=== PATIENT | female | born 1965 | race Caucasian/White ===

== ENCOUNTER → 2022-08-17 11:07 | Outpatient (BNVA) | payer MEDICAID, SELFPAY | PROVIDERS: Visit Provider Family Medicine | DX: I10 Essential (primary) hypertension (principal); E66.01 Morbid (severe) obesity due to excess calories; R73.03 Prediabetes; G47.00 Insomnia, unspecified; G47.33 Obstructive sleep apnea (adult) (pediatric); M54.9 Dorsalgia, unspecified; G89.29 Other chronic pain; G43.509 Persistent migraine aura without cerebral infarction, not intractable, without status migrainosus; Z99.89 Dependence on other enabling machines and devices; F32.1 Major depressive disorder, single episode, moderate; F17.200 Nicotine dependence, unspecified, uncomplicated; Z71.6 Tobacco abuse counseling; I87.8 Other specified disorders of veins; E03.9 Hypothyroidism, unspecified | CPT/HCPCS: 80053; 80061; 83036; 84439; 84443; 85025 ==

== ENCOUNTER → 2022-08-31 11:33 | Outpatient (BNVA) | payer MEDICAID, SELFPAY | PROVIDERS: Visit Provider Family Medicine | DX: I10 Essential (primary) hypertension (principal); G47.00 Insomnia, unspecified; G43.509 Persistent migraine aura without cerebral infarction, not intractable, without status migrainosus; E03.9 Hypothyroidism, unspecified; E66.01 Morbid (severe) obesity due to excess calories; M54.9 Dorsalgia, unspecified; G89.29 Other chronic pain; R73.03 Prediabetes; F32.1 Major depressive disorder, single episode, moderate; F17.200 Nicotine dependence, unspecified, uncomplicated; G47.33 Obstructive sleep apnea (adult) (pediatric) | CPT/HCPCS: 80048 ==

== ENCOUNTER → 2022-09-02 12:17 | Outpatient (BNVA) | payer MEDICAID, SELFPAY | PROVIDERS: Visit Provider Anesthesiology Pain Medicine | DX: M54.9 Dorsalgia, unspecified (principal); G89.29 Other chronic pain | CPT/HCPCS: 72110 ==

== ENCOUNTER 2022-11-23 20:00 | Outpatient (CLI) | payer MEDICAID, SELFPAY | END 2022-11-23 20:01 | disposition home or self-care (01) | LOC: SLEEP 11-24 05:57 | PROVIDERS: PCP Family Medicine; Visit Provider Family Medicine | DX: G47.33 Obstructive sleep apnea (adult) (pediatric) (principal) | CPT/HCPCS: 95810 ==

== ENCOUNTER → 2022-11-30 09:06 | Outpatient (BNVA) | payer OTHER, SELFPAY | PROVIDERS: PCP Family Medicine; Visit Provider Psychiatry & Neurology Psychiatry | DX: F32.1 Major depressive disorder, single episode, moderate (principal) | CPT/HCPCS: 80061; 83036 ==

== ENCOUNTER 2022-12-02 09:36 | Outpatient (RCR) | payer MEDICAID, SELFPAY | END 2022-12-22 23:59 | disposition home or self-care (01) | LOC: SPT 09:36 | PROVIDERS: PCP Family Medicine; Visit Provider Anesthesiology Pain Medicine | DX: M54.50 Low back pain, unspecified (principal); G89.29 Other chronic pain | CPT/HCPCS: 97161 ==

== ENCOUNTER 2022-12-13 10:17 | Inpatient (IN) | payer MEDICAID, SELFPAY ==
[2022-12-13 10:21] VITALS: BP 130/76; PULSE 109; RESP 20; TEMP 36.3; O2SAT 96
--- NOTE | 2022-12-13 11:13 | ED.C_ITS ---
HPI - Psych General: Chief Complaint: Psychiatric Symptoms Stated Complaint: mhe Time Seen by Provider: 12/13/22 10:20 History of Present Illness: 57-year-old male with past medical history of borderline diabetes, nicotine use disorder, major depressive disorder, presenting with active suicidality. Patient was staying at the [facility] given he does not have a home of his own and he was kicked out. He pulled on the pony tail of a another resident and was joking around with her. She did not take this as a joke when it came from him but she did take as a joke when it happened with other residents, and he was kicked out of this living situation. Subsequently states that he plans to run into the middle of the road abruptly when he sees a large vehicle coming in order to end his life. States he has never attempted to kill himself in the past. Denies homicidal criss ation. Denies drug ingestion, alcohol ingestion. Has smoked cigarettes recently. Associated symptoms: Reports depression and suicidal ideation; Deny homicidal ideation Review of Systems General: Reports: 10 or more systems reviewed and unremarkable except in HPI and below Const: Denies: fever(s), chills or body aches Eyes: Denies: change in vision or blurry vision ENMT: Denies: throat pain, uvular edema or enlarged tonsils Card: Denies: chest pain or palpitations GI: Denies: abdominal pain, nausea or vomiting : Reports: other (States has a small skin lesion on his right groin area ); Denies: difficulty urinating or dysuria Musc: Denies: neck pain or back pain Skin/Breast: Denies: rash or pruritus Neuro: Denies: headache(s) or numbness in extremities Psych: Reports: depression and suicidal ideation; Denies: homicidal ideation [facility] ED PFSH: Medical History Borderline diabetes Chronic back pain Dependence on CPAP ventilation Depression Does mobilize using cane Essential (primary) hypertension Migraine aura, persistent Morbid obesity BMI 68.7% Obstructive sleep apnea Psychiatric care Renal calculus or stone Tobacco use disorder Surgical History History of nasal surgery Septum deviation History of tonsillectomy and adenoidectomy History of uvulopalatopharyngoplasty Family History Grandfather Hypertension Mother Cancer Hodgkin's Denies family history of Diabetes Dementia Chronic kidney disease (CKD) Lung disease Stroke Social History (Updated 12/01/22 @ 08:15 by Gianna Hartley LPN) Smoking and tobacco status: current every day smoker (0.5ppd) cigarettes [ Other cigarette details: 2 cigs/day] Quit status (tobacco): not considering quitting Second hand smoke exposure: Yes Alcohol intake: never Desire information about alcohol rehabilitation?: No Counseling given: No Desire information about substance/drug rehabilitation?: No Counseling given: No Adopted: No Caregiver/support person: No Lives independently: No (at [facility]) Household members: other Details: currently at [facility] Housing: Other Details: [facility] Marital status: / Number of children: 1 Number of grandchildren: 2 Highest education level completed: Associate Degree: Academic Program Education level details: and part way through Bachelor's degree service: No Current occupational status: unemployed and disabled 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 Current occupational exposures/hazards: No Pets and animals: No Leisure activites: reading and other Leisure activities details: watch movies, play on computer Current gender identity: Male Irene/Evangelical: None Special irene needs: No Agree to transfusion: No Financial difficulty paying for basics: Very Hard Physical Exam Const: COMMON NORMALS: no acute distress and average body habitus HENMT: COMMON NORMALS: normocephalic, atraumatic and Normal external nose present HEAD & SCALP: normocephalic and atraumatic FACE & SINUS: normal facial exam and sinuses nontender NOSE: Normal external nose present ABEL TH: Normal oral and palatal mucosa present THROAT: no uvular edema Eye: COMMON NORMALS: Equal, round and reactive pupils present and EOMs intact bilaterally PUPIL: Yes Equal, round and reactive pupils present Neck/C-Spine: COMMON NORMALS: full ROM and supple Chest: COMMONS NORMALS: normal inspection of the chest and normal palpation of entire chest wall Resp: COMMON NORMALS: normal respiratory effort and No retractions GI: COMMON NORMALS: Normal to inspection, nondistended, normoactive bowel sounds present, Soft to palpation and non-tender PALPATION: Yes Soft to palpation OTHER: Large obese male with prominent pannus, odorous discharge from under his pannus without obvious candidal infection. : OTHER: Examination of groin area with elevation of the pannus with 2 man assist demonstrates purulent drainage from left inguinal abscess Back/Pelvis: COMMON NORMALS: thoracic and lumbar spine normal to inspection and no thoracic nor lumbar tenderness Extremity: COMMON NORMALS: normal to inspection and full ROM Procedures Abscess I/D Site: other (Right inguinal region) Side (if applicable): right Sedation/analgesia: none Technique: other (Open draining abscess broke apart loculations with curved forceps) Amount of fluid expressed (mL): 10 Irrigation: Yes Packing used?: none Course Vital Signs: Vital signs: Vital Signs Temperature 97.9 F 12/13/22 15:14 Pulse Rate 83 12/13/22 15:14 Respiratory Rate 20 H 12/13/22 15:14 Blood Pressure 121/72 12/13/22 15:14 Pulse Oximetry 96 12/13/22 15:14 Oxygen Delivery Me thod CPAP 12/13/22 15:34 MDM - Psych Medical Decision Making 57-year-old male with active suicidal ideation and a plan. Vitals nonactionable. Examination suggesting draining abscess of the right inguinal area without systemic symptoms necessitating further intervention at this point time. Incision and drainage per above with curved forceps only. Provided groin cleaning with wipes bedside. Advised on-call psychiatrist on finding and need to provide regular wound care to that area as well as twice daily doxycycline for 7 days. Patient admitted to the inpatient psychiatric service for further care and treatment. Lab Data 12/13/22 12:22 Other Data I personally reviewed and interpreted the following: Discharge Plan Discharge Patient Disposition: Admitted As Inpatient Admit Provider: Blaine Britt Clinical Impression: Suicide ideation Condition: Stable Coding Level of Care Code ED Senior Investigator for Lupe Bertrand
[2022-12-13 12:37] LABS: Basophils # 0.1 10^3/uL (0.0-0.1); Basophils % 0.5 %; Eosinophils # 0.1 10^3/uL (0.0-0.8); Eosinophils % 0.9 %; Hematocrit 44.7 % (42.0-52.0); Hemoglobin 13.9 g/dL (11.7-16.6); Lymphocytes # 1.4 10^3/uL (0.8-4.8); Lymphocytes % 13.8 %; Mean Corpuscular HGB Conc 31.1 g/dL (30.0-36.0); Mean Corpuscular Hemoglobin 27.8 pg (28.0-34.0); Mean Corpuscular Volume 89.4 fl (80-94); Monocytes # 0.6 10^3/uL (0.2-0.9); Monocytes % 6.2 %; Neutrophils # 7.85 10^3/uL (1.8-7.7); Neutrophils % 78.2 %; Nucleated Red Blood Cells % 0 %; Platelet Count 320 10^3/cmm (130-400); Red Cell Distribution Width 17.3 % (12.1-15.1)
[2022-12-13 12:56] LABS: NT Pro B Type Natriuretic Pept 36 pg/mL (0-125)
[2022-12-13 12:58] LABS: Acetaminophen < 5.0 ug/mL (10-30); Salicylate < 0.3 mg/dL (3-10)
[2022-12-13 14:23] LABS: Amphetamines Screen Urine Negative (Negative); Barbiturates Screen Urine Positive (Negative); Benzodiazepines Screen Urine Negative (Negative); Cocaine Screen Urine Negative (Negative); Opiate Screen Urine Negative (Negative); PCP Screen Urine Negative (Negative); THC Screen Urine Negative (Negative)
[2022-12-13 15:14] VITALS: BP 121/72; PULSE 83; RESP 20; TEMP 36.6; O2SAT 96
[2022-12-13] MEDS: doxycycline 100 mg Tablet PO (18:26)
--- NOTE | 2022-12-13 21:00 | PC.NURSE ---
pt refused DULoxetine and topiramate. stated I dont take these medications at night. I take these medications in the morning. attempted to educate pt on importance of taking medication when scheduled. pt continued to refuse.
[2022-12-13 21:08] VITALS: BP 113/68; PULSE 79; RESP 20; TEMP 36.6; O2SAT 94
[2022-12-13] MEDS: naproxen 500 mg Tablet PO (21:48)
[2022-12-13] MEDS: trazodone 150 mg Tablet 300 MG PO (21:49)
[2022-12-13] MEDS: methocarbamol 750 mg Tablet PO (21:49)
[2022-12-14 06:00] VITALS: BP 97/59; PULSE 85; O2SAT 96
[2022-12-14] MEDS: sertraline 50 mg Tablet PO (08:38)
[2022-12-14] MEDS: doxycycline 100 mg Tablet PO ×2 (08:38→17:49)
[2022-12-14] MEDS: methocarbamol 750 mg Tablet PO ×3 (08:38→21:17)
[2022-12-14] MEDS: pantoprazole DR 40 mg Tablet PO (08:39)
[2022-12-14] MEDS: lisinopril 20 mg Tablet PO (08:39)
[2022-12-14] MEDS: duloxetine 60 mg Capsule PO ×2 (08:39→17:49)
[2022-12-14] MEDS: topiramate 25 mg Tablet PO ×2 (08:40→17:50)
[2022-12-14] MEDS: levothyroxine 50 mcg Tablet PO (08:40)
[2022-12-14] MEDS: hyDROXYzine 25 mg Capsule 50 MG PO (12:07)
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
[2022-12-14 14:00] VITALS: BP 103/65; PULSE 86; RESP 20; TEMP 36.6; O2SAT 96
[2022-12-14 20:09] VITALS: BP 110/67; PULSE 82; RESP 18; TEMP 37.1; O2SAT 94
[2022-12-14] MEDS: trazodone 150 mg Tablet 300 MG PO (21:18)
[2022-12-15 06:00] VITALS: BP 105/65; PULSE 76; RESP 20; O2SAT 96
[2022-12-15] MEDS: levothyroxine 50 mcg Tablet PO (06:47)
[2022-12-15] MEDS: doxycycline 100 mg Tablet PO ×2 (08:25→17:58)
[2022-12-15] MEDS: ARIPiprazole 2 mg Tablet PO (08:26)
[2022-12-15] MEDS: pantoprazole DR 40 mg Tablet PO ×2 (08:26→08:27)
[2022-12-15] MEDS: topiramate 25 mg Tablet PO ×2 (08:26→17:58)
[2022-12-15] MEDS: duloxetine 60 mg Capsule PO ×2 (08:26→17:58)
[2022-12-15] MEDS: sertraline 50 mg Tablet 25 MG PO (08:27)
[2022-12-15] MEDS: methocarbamol 750 mg Tablet PO ×3 (08:27→21:19)
[2022-12-15] MEDS: lisinopril 20 mg Tablet PO (08:28)
[2022-12-15] MEDS: naproxen 500 mg Tablet PO ×2 (08:34→21:19)
[2022-12-15 08:51] LABS: Basophils # 0.1 10^3/uL (0.0-0.1); Basophils % 0.8 %; Eosinophils # 0.2 10^3/uL (0.0-0.8); Eosinophils % 3.3 %; Hematocrit 47.5 % (42.0-52.0); Hemoglobin 14.4 g/dL (11.7-16.6); Lymphocytes # 1.7 10^3/uL (0.8-4.8); Lymphocytes % 23.2 %; Mean Corpuscular HGB Conc 30.3 g/dL (30.0-36.0); Mean Corpuscular Hemoglobin 27.5 pg (28.0-34.0); Mean Corpuscular Volume 90.8 fl (80-94); Mean Platelet Volume 9.1 fL (7.4-10.4); Monocytes # 0.5 10^3/uL (0.2-0.9); Neutrophils # 4.77 10^3/uL (1.8-7.7); Neutrophils % 65.3 %; Nucleated Red Blood Cells % 0 %; Platelet Count 308 10^3/cmm (130-400); Red Blood Count 5.23 10^6/uL (4.1-5.3); Red Cell Distribution Width 17.3 % (12.1-15.1); White Blood Count 7.3 10^3/uL (4.0-10.0)
[2022-12-15 08:59] LABS: Anion Gap 16.5 (5-19); Blood Urea Nitrogen 17 mg/dL (6-20); Calcium 9.3 mg/dL (8.5-10.5); Carbon Dioxide 24 mmol/L (22-29); Chloride 99 mmol/L (98-107); Glomerular Filtration Rate 77.6 mL/min (90-130); Glucose 101 mg/dL (65-115); Osmolality Calculated 282 mOsm/kg (285-295); Potassium 4.5 mmol/L (3.5-5.1); Sodium 135 mmol/L (136-145)
[2022-12-15 09:19] LABS: Estmated Average Glucose 117; Hemoglobin A1C 5.7 % (4.0-6.0)
[2022-12-15] MEDS: hyDROXYzine 25 mg Capsule 50 MG PO ×2 (11:27→21:19)
[2022-12-15 14:00] VITALS: BP 96/60; PULSE 78; RESP 20; TEMP 36.8; O2SAT 94
[2022-12-15] MEDS: bacitracin ointment 28 gm TOPICAL (14:30)
--- NOTE | 2022-12-15 16:35 | W.PM.NPUPNS ---
Subjective NPU Subjective: 57-year-old male with history of polysubstance abuse particularly alcohol dependence along with major depressive disorder admitted with suicidal ideation and depressed mood with significant medical issues including morbid obesity hypothyroidism and borderline diabetes. The patient had reported continued depression. He had reported having occasional suicidal thoughts. He appeared to be cooperative on the milieu although he appeared to lack initiative and acknowledged struggling with managing his motivation. He had endorsed a sense of hopelessness. He had reported 30 pound weight loss in efforts of trying to lose weight with his hypothyroidism now being treated. He had been able to keep his CPAP machine on at night and stated that he had some slight improvement in regards to energy with the use of CPAP. He had endorsed some difficulties with managing his frustrations and stated that he often felt upset at his situation in life. He had reported no history of psychotherapy but states that he would continue with medication management at [facility] when stabilized. Mental Status Exam MSE Comments: Is a morbidly obese white male who appeared his stated age with poor hygiene and disheveled appearance. His gait was slow and steady with no evidence of any abnormal involuntary motor movements, tics or tremors appreciated. His speech was normal in regards to rate rhythm and prosody. His mood was described as depressed. His affect was restricted in range and mood-congruent. His thought process was linear logical and goal-directed. He endorsed suicidal ideation with no active plan.. He minimized any homicidal ideation. He did not appear to be responding to internal stimuli. There is no evidence of any delusional thinking. His attention span appeared adequate. His impulse control appeared poor. His insight and judgment were both limited. His recent and remote memory appeared grossly intact. He was alert and oriented to person place and time. Vitals/I&O/Wt Last Vital Signs Temp 98.2 F 12/15/22 14:00 Pulse 78 12/15/22 14:00 Resp 20 H 12/15/22 14:00 BP 96/60 12/15/22 14:00 Pulse Ox 94 12/15/22 14:00 O2 Del Method 12/15/22 14:00 12/15/22 12/15/22 12/15/22 06:59 14:59 22:59 Intake Total 750 / 750 Balance 750 / 750 Data NPU 12/15/22 08:29 12/15/22 08:29 A&P Assessment and plan (1) Major depressive disorder, severe: (2) Hypothyroidism: Plan Patient is a 57-year-old homeless white male with a history of major depressive disorder and polysubstance abuse admitted with suicidal ideation with multiple medical problems. #1. Restart current medications. Increase Abilify to 5mg daily, continue cymbalta as prescribed. D/C zoloft. #2. Appreciative of help with med/surg regarding inguinal abcess. #3 engage patient in individual milieu and group therapy #4. Encourage sobriety treatment at the highest level to which the patient is willing to commit. #5. Continue CPAP on unit for sleep apnea #6 check thyroid panel Involuntary Hold Information 96 Hour Hold: 96 Hour Involuntary Admission: No Attestations NPU Medical Necessity Statement*: Inpatient hospitalization is medically necessary and the clinically appropriate intervention at this time we will initiate and or adjust medications at this time. The patient's likely length of stay is 5 to 7 days. Coding Level of Care Code Acute Code for g Fwd Diagnoses Major depressive disorder, severe F32.2 Hypothyroidism E03.9
[2022-12-15 21:07] VITALS: BP 104/66; PULSE 76; RESP 17; O2SAT 94
[2022-12-15] MEDS: trazodone 150 mg Tablet 300 MG PO (21:19)
[2022-12-15] MEDS: fluticasone nasal spray 16gm Btl 2 SPRAY INTRANASAL (21:20)
[2022-12-16 06:00] VITALS: RESP 18
[2022-12-16] MEDS: levothyroxine 50 mcg Tablet PO (06:27)
[2022-12-16 07:18] LABS: Free T4 Free Thyroxine 1.11 ng/dL (0.82-1.77); Thyroid Stimulating Hormone 2.84 uIU/mL (0.27-4.20)
[2022-12-16] MEDS: doxycycline 100 mg Tablet PO ×2 (08:48→18:09)
[2022-12-16] MEDS: lisinopril 20 mg Tablet PO (08:48)
[2022-12-16] MEDS: methocarbamol 750 mg Tablet PO ×3 (08:48→20:18)
[2022-12-16] MEDS: topiramate 25 mg Tablet PO ×2 (08:48→18:09)
[2022-12-16] MEDS: duloxetine 60 mg Capsule PO ×2 (08:48→18:09)
[2022-12-16] MEDS: ARIPiprazole 10 mg Tablet 5 MG PO (08:49)
[2022-12-16] MEDS: pantoprazole DR 40 mg Tablet PO ×2 (09:52)
[2022-12-16] MEDS: bacitracin ointment 28 gm TOPICAL ×2 (09:52→15:58)
[2022-12-16 14:00] VITALS: BP 105/62; PULSE 89; RESP 20; TEMP 36.7; O2SAT 93
--- NOTE | 2022-12-16 17:51 | W.PM.NPUPNS ---
Subjective NPU Subjective: 57-year-old male with history of polysubstance abuse particularly alcohol dependence along with major depressive disorder admitted with suicidal ideation and depressed mood with significant medical issues including morbid obesity hypothyroidism and borderline diabetes. Patient continued to show evidence of low motivation and low energy. He reported no change in overall mood. He had endorsed intermittent suicidal thoughts. He had minimized any active plans. He reported that he continued to feel excessively tired in the day and was seen lying down in his room. He reported having an extended history of chronically feeling tired with difficulties with concentration for many years. Mental Status Exam MSE Comments: Is a morbidly obese white male who appeared his stated age with poor hygiene and disheveled appearance. He was lying in bed and appeared somewhat fatigued in the morning. His gait was slow and steady with no evidence of any abnormal involuntary motor movements, tics or tremors appreciated. His speech was normal in regards to rate rhythm and prosody. His mood was described as depressed. His affect was restricted in range and mood-congruent. His thought process was linear logical and goal-directed. He endorsed suicidal ideation with no active plan.. He minimized any homicidal ideation. He did not appear to be responding to internal stimuli. There is no evidence of any delusional thinking. His attention span appeared adequate. His impulse control appeared poor. His insight and judgment were both limited. His recent and remote memory appeared grossly intact. He was alert and oriented to person place and time. Vitals/I&O/Wt Last Vital Signs Temp 98.0 F 12/16/22 14:00 Pulse 89 12/16/22 14:00 Resp 20 H 12/16/22 14:00 BP 105/62 12/16/22 14:00 Pulse Ox 93 12/16/22 14:00 O2 Del Method 12/16/22 06:00 12/16/22 12/16/22 12/16/22 06:59 14:59 22:59 Intake Total 750 / 750 Balance 750 / 750 Data NPU 12/15/22 08:29 12/15/22 08:29 A&P Assessment and plan (1) Major depressive disorder, severe: (2) Hypothyroidism: Plan Patient is a 57-year-old homeless white male with a history of major depressive disorder and polysubstance abuse admitted with suicidal ideation with multiple medical problems. #1. Restart current medications. Continue Abilify to 10mg daily, continue cymbalta as prescribed. Add Nuvigil for EDS. #2. Appreciative of help with med/surg regarding inguinal abcess. #3 engage patient in individual milieu and group therapy #4. Encourage sobriety treatment at the highest level to which the patient is willing to commit. #5. Continue CPAP on unit for sleep apnea #6 check thyroid panel Involuntary Hold Information 96 Hour Hold: 96 Hour Involuntary Admission: No Attestations NPU Medical Necessity Statement*: Inpatient hospitalization is medically necessary and the clinically appropriate intervention at this time we will initiate and or adjust medications at this time. The patient's likely length of stay is 5 to 7 days. Coding Level of Care Code Acute Code for Chg Fwd Diagnoses Major depressive disorder, severe F32.2 Hypothyroidism E03.9
[2022-12-16] MEDS: trazodone 150 mg Tablet 300 MG PO (20:18)
[2022-12-16] MEDS: fluticasone nasal spray 16gm Btl 2 SPRAY INTRANASAL (20:21)
[2022-12-16 22:00] VITALS: BP 114/69; PULSE 82; RESP 15; O2SAT 96
[2022-12-17 06:00] VITALS: RESP 18
[2022-12-17] MEDS: levothyroxine 50 mcg Tablet PO (07:26)
[2022-12-17] MEDS: ARIPiprazole 10 mg Tablet PO (08:54)
[2022-12-17] MEDS: topiramate 25 mg Tablet PO ×2 (08:55→17:13)
[2022-12-17] MEDS: doxycycline 100 mg Tablet PO ×2 (08:55→17:13)
[2022-12-17] MEDS: methocarbamol 750 mg Tablet PO ×3 (08:55→21:10)
[2022-12-17] MEDS: lisinopril 20 mg Tablet PO (08:55)
[2022-12-17] MEDS: duloxetine 60 mg Capsule PO ×2 (08:55→17:13)
[2022-12-17] MEDS: pantoprazole DR 40 mg Tablet PO ×3 (08:56→09:17)
[2022-12-17] MEDS: bacitracin ointment 28 gm TOPICAL ×2 (08:58→15:10)
[2022-12-17 14:00] VITALS: BP 109/66; PULSE 86; RESP 20; TEMP 36.4; O2SAT 93
--- NOTE | 2022-12-17 15:04 | W.PM.NPUPNS ---
Subjective NPU Subjective: Patient presented today reporting that he is still having depression and anxiety and he was not sure what has really been done thus far. We discussed that his Abilify was increased this morning and that we will give time for that change to manifest. We discussed his discharge planning and that his possibilities seem quite limited so we will need to expand our scope of where the discharge location can be. We discussed some of the opportunities that exist in [place] and agreed to talk to social work team about these considerations. Mental Status Exam MSE Comments: This is a morbidly obese white male who appeared his stated age with poor hygiene and disheveled appearance. No abnormal movements as he was sitting in a chair in the dayroom. Cooperative with exam in mild distress. His speech was normal in regards to rate rhythm and prosody. His mood was described as depressed. His affect was restricted in range and mood-congruent. His thought process was linear logical and goal-directed. He endorsed having some suicidal thoughts with no active plan but denied homicidal ideation, there were no delusions reported or noted, he denied any auditory or visual hallucinations. He minimized any homicidal ideation. Attention and concentration appeared intact and memory appeared mostly reliable but none were formally tested. He alert and oriented x3. His impulse control appeared poor. His insight and judgment were both limited. Vitals/I&O/Wt Last Vital Signs Temp 98.0 F 12/16/22 14:00 Pulse 82 12/16/22 22:00 Resp 18 12/17/22 06:00 BP 114/69 12/16/22 22:00 Pulse Ox 96 12/16/22 22:00 O2 Del Method 12/16/22 22:00 Data NPU 12/15/22 08:29 12/15/22 08:29 A&P Assessment and plan (1) Major depressive disorder, severe: (2) Hypothyroidism: Plan Patient is a 57-year-old homeless white male with a history of major depressive disorder and polysubstance abuse admitted with suicidal ideation with multiple medical problems. #1. Restart current medications. Continue Abilify 10mg daily, continue cymbalta as prescribed. Add Nuvigil for EDS. #2. Appreciative of help with med/surg regarding inguinal abcess. #3 engage patient in individual milieu and group therapy #4. Encourage sobriety treatment at the highest level to which the patient is willing to commit. #5. Continue CPAP on unit for sleep apnea #6 check thyroid panel Involuntary Hold Information 96 Hour Hold: 96 Hour Involuntary Admission: No Attestations NPU Medical Necessity Statement*: Inpatient hospitalization is medically necessary and the clinically appropriate intervention at this time we will initiate and or adjust medications at this time. The patient's likely length of stay is 4-6 days. Coding Level of Care Code Acute Code for Chg Fwd Diagnoses Major depressive disorder, severe F32.2 Hypothyroidism E03.9
--- NOTE | 2022-12-17 17:36 | PC.NURSE ---
Attempted to collect wound culture; patient refused to let nurse look at lower abd and do wound care and culture.
[2022-12-17] MEDS: trazodone 150 mg Tablet 300 MG PO (21:11)
[2022-12-17] MEDS: fluticasone nasal spray 16gm Btl 2 SPRAY INTRANASAL (21:14)
[2022-12-17 22:00] VITALS: BP 108/67; PULSE 81; RESP 17; TEMP 36.6; O2SAT 94
[2022-12-18 06:00] VITALS: RESP 18
[2022-12-18] MEDS: levothyroxine 50 mcg Tablet PO (06:30)
[2022-12-18] MEDS: lisinopril 20 mg Tablet PO (09:32)
[2022-12-18] MEDS: ARIPiprazole 10 mg Tablet PO (09:33)
[2022-12-18] MEDS: methocarbamol 750 mg Tablet PO ×3 (09:33→21:13)
[2022-12-18] MEDS: duloxetine 60 mg Capsule PO ×2 (09:33→18:01)
[2022-12-18] MEDS: topiramate 25 mg Tablet PO ×2 (09:33→18:02)
[2022-12-18] MEDS: doxycycline 100 mg Tablet PO ×2 (09:33→18:01)
[2022-12-18] MEDS: bacitracin ointment 28 gm TOPICAL ×3 (10:22→21:14)
[2022-12-18 14:00] VITALS: BP 102/64; PULSE 83; RESP 18; TEMP 36.4; O2SAT 97
--- NOTE | 2022-12-18 14:01 | W.PM.NPUPNS ---
Subjective NPU Subjective: Patient presented today reporting that he possibly feels a little better now that he is have the increase in the Abilify. We continued to discuss a discharge plan. We agreed that on Wednesday we would make sure that he can get out of here early to go to the programming that he and the social work team have arranged for his discharge. He will be in the [place] area and they are working on appropriate follow-up with plan for discharge first thing. Mental Status Exam MSE Comments: This is a morbidly obese white male who appeared his stated age with poor hygiene and disheveled appearance. No abnormal movements as he was sitting in a chair in the dayroom. Cooperative with exam in mild distress. His speech was normal in regards to rate rhythm and prosody. His mood was described as depressed but maybe a little bit better. His affect was restricted in range and mood-congruent. His thought process was linear logical and goal-directed. He endorsed having some suicidal thoughts with no active plan but denied homicidal ideation, there were no delusions reported or noted, he denied any auditory or visual hallucinations. He minimized any homicidal ideation. Attention and concentration appeared intact and memory appeared mostly reliable but none were formally tested. He alert and oriented x3. His impulse control appeared poor. His insight and judgment were both limited. Vitals/I&O/Wt Last Vital Signs Temp 97.9 F 12/17/22 22:00 Pulse 81 12/17/22 22:00 Resp 18 12/18/22 06:00 BP 108/67 12/17/22 22:00 Pulse Ox 94 12/17/22 22:00 O2 Del Method 12/17/22 22:00 12/17/22 12/18/22 12/18/22 22:59 06:59 14:59 Intake Total 750 / 750 Balance 750 / 750 Data NPU 12/15/22 08:29 12/15/22 08:29 A&P Assessment and plan (1) Major depressive disorder, severe: (2) Hypothyroidism: Plan Patient is a 57-year-old homeless white male with a history of major depressive disorder and polysubstance abuse admitted with suicidal ideation with multiple medical problems. #1. Restart current medications. Continue Abilify 10mg daily, continue cymbalta as prescribed. Add Nuvigil for EDS. #2. Appreciative of help with med/surg regarding inguinal abcess. #3 engage patient in individual milieu and group therapy #4. Encourage sobriety treatment at the highest level to which the patient is willing to commit. #5. Continue CPAP on unit for sleep apnea #6 check thyroid panel Involuntary Hold Information 96 Hour Hold: 96 Hour Involuntary Admission: No Attestations NPU Medical Necessity Statement*: Inpatient hospitalization is medically necessary and the clinically appropriate intervention at this time we will initiate and or adjust medications at this time. The patient's likely length of stay is 3-5 days. Coding Level of Care Code Acute Code for Chg Fwd Diagnoses Major depressive disorder, severe F32.2 Hypothyroidism E03.9
[2022-12-18] MEDS: naproxen 500 mg Tablet PO (14:23)
[2022-12-18 20:05] VITALS: BP 137/86; PULSE 81; RESP 24; TEMP 36.7; O2SAT 96
[2022-12-18] MEDS: trazodone 150 mg Tablet 300 MG PO (21:12)
[2022-12-18] MEDS: fluticasone nasal spray 16gm Btl 2 SPRAY INTRANASAL (21:14)
[2022-12-19 06:00] VITALS: RESP 15
[2022-12-19] MEDS: levothyroxine 50 mcg Tablet PO (08:56)
[2022-12-19] MEDS: duloxetine 60 mg Capsule PO ×2 (08:57→17:00)
[2022-12-19] MEDS: pantoprazole DR 40 mg Tablet PO (08:57)
[2022-12-19] MEDS: lisinopril 20 mg Tablet PO (08:57)
[2022-12-19] MEDS: ARIPiprazole 10 mg Tablet PO (08:57)
[2022-12-19] MEDS: topiramate 25 mg Tablet PO ×2 (08:57→17:00)
[2022-12-19] MEDS: doxycycline 100 mg Tablet PO (08:57)
[2022-12-19] MEDS: methocarbamol 750 mg Tablet PO ×3 (08:57→22:00)
[2022-12-19] MEDS: bacitracin ointment 28 gm TOPICAL (08:59)
--- NOTE | 2022-12-19 10:22 | W.PM.NPUPNS ---
Subjective NPU Subjective: Patient presented today reporting that he is actually feeling a little better. He reports that seeing some struggles of others on the unit has given him a little perspective. We continued to discuss the probability of discharge at the beginning week. At this point he continues to endorse this being a plan he can support. Mental Status Exam MSE Comments: This is a morbidly obese white male who appeared his stated age with poor hygiene and disheveled appearance. No abnormal movements as he was sitting in a chair in the dayroom. Cooperative with exam in mild distress. His speech was normal in regards to rate rhythm and prosody. His mood was described as a little better. His affect was . His thought process was linear logical and goal-directed. He endorsed having some suicidal thoughts with no active plan but denied homicidal ideation, there were no delusions reported or noted, he denied any auditory or visual hallucinations. He minimized any homicidal ideation. Attention and concentration appeared intact and memory appeared mostly reliable but none were formally tested. He alert and oriented x3. His impulse control appeared poor. His insight and judgment were both limited. Vitals/I&O/Wt Last Vital Signs Temp 98.1 F 12/18/22 20:05 Pulse 81 12/18/22 20:05 Resp 15 12/19/22 06:00 BP 137/86 12/18/22 20:05 Pulse Ox 96 12/18/22 20:05 O2 Del Method 12/18/22 20:05 Data NPU 12/15/22 08:29 12/15/22 08:29 A&P Assessment and plan (1) Major depressive disorder, severe: (2) Hypothyroidism: Plan Patient is a 57-year-old homeless white male with a history of major depressive disorder and polysubstance abuse admitted with suicidal ideation with multiple medical problems. #1. Restart current medications. Continue Abilify 10mg daily, continue cymbalta as prescribed. Add Nuvigil for EDS. #2. Appreciative of help with med/surg regarding inguinal abcess. #3 engage patient in individual milieu and group therapy #4. Encourage sobriety treatment at the highest level to which the patient is willing to commit. #5. Continue CPAP on unit for sleep apnea #6 check thyroid panel Involuntary Hold Information 96 Hour Hold: 96 Hour Involuntary Admission: No Attestations NPU Medical Necessity Statement*: Inpatient hospitalization is medically necessary and the clinically appropriate intervention at this time we will initiate and or adjust medications at this time. The patient's likely length of stay is 2-4 days. Coding Level of Care Code Acute Code for Chg Fwd Diagnoses Major depressive disorder, severe F32.2 Hypothyroidism E03.9
[2022-12-19] MEDS: hyDROXYzine 25 mg Capsule 50 MG PO (10:23)
[2022-12-19] MEDS: naproxen 500 mg Tablet PO ×2 (10:23→21:00)
[2022-12-19 14:00] VITALS: BP 111/64; PULSE 82; RESP 20; TEMP 36.7; O2SAT 95
[2022-12-19 20:03] VITALS: BP 109/67; PULSE 83; RESP 20; TEMP 36.5; O2SAT 96
[2022-12-19] MEDS: trazodone 150 mg Tablet 300 MG PO (22:00)
[2022-12-20 06:00] VITALS: BP 90/53; PULSE 82; RESP 20; TEMP 36.6; O2SAT 96
[2022-12-20] MEDS: levothyroxine 50 mcg Tablet PO (07:33)
[2022-12-20] MEDS: pantoprazole DR 40 mg Tablet PO ×2 (08:35→08:36)
[2022-12-20] MEDS: ARIPiprazole 10 mg Tablet PO (08:35)
[2022-12-20] MEDS: duloxetine 60 mg Capsule PO ×2 (08:35→17:20)
[2022-12-20] MEDS: lisinopril 20 mg Tablet PO (08:35)
[2022-12-20] MEDS: topiramate 25 mg Tablet PO ×2 (08:36→17:20)
[2022-12-20] MEDS: methocarbamol 750 mg Tablet PO ×3 (08:36→21:44)
[2022-12-20] MEDS: naproxen 500 mg Tablet PO ×2 (08:37→17:20)
--- NOTE | 2022-12-20 13:10 | P.NPUPN_ITS ---
Subjective NPU Subjective: Patient presented today reporting that he is doing better. He had questions about the cremation system and how they do things there in [place]. He seemed to be more relaxed and open about going to the program after our discussion. He denied any problems with his medications and reports that he is eating fine and sleeping better. We discussed a plan for discharge in the morning. Mental Status Exam MSE Comments: This is a morbidly obese white male who appeared his stated age with poor hygiene and disheveled appearance. No abnormal movements as he was sitting in a chair in the dayroom. Cooperative with exam in no acute distress. His speech was normal in regards to rate rhythm and prosody. His mood was described as a little better. His affect was congruent. His thought process w as linear logical and goal-directed. He endorsed having some suicidal thoughts with no active plan but denied homicidal ideation, there were no delusions reported or noted, he denied any auditory or visual hallucinations. He minimized any homicidal ideation. Attention and concentration appeared intact and memory appeared mostly reliable but none were formally tested. He alert and oriented x3. His impulse control appeared improving. His insight and judgment were both limited, but improving. Vitals/I&O/Wt Last Vital Signs Temp 97.9 F 12/20/22 06:00 Pulse 82 12/20/22 06:00 Resp 20 H 12/20/22 06:00 BP 90/53 12/20/22 06:00 Pulse Ox 96 12/20/22 06:00 O2 Del Method 12/18/22 20:05 12/19/22 12/20/22 12/20/22 22:59 06:59 14:59 Intake Total 750 / 750 Balance 750 / 750 Weight last 48 hrs Weight 182.344 kg Data NPU 12/15/22 08:29 12/15/22 08:29 A&P Assessment and plan (1) Major depressive disorder, severe: (2) Hypothyroidism: Plan Patient is a 57-year-old homeless white male with a history of major depressive disorder and polysubstance abuse admitted with suicidal ideation with multiple medical problems. #1. Restart current medications. Continue Abilify 10mg daily, continue cymbalta as prescribed. add Nuvigil for EDS. #2. Appreciative of help with med/surg regarding inguinal abcess. #3 engage patient in individual milieu and group therapy #4. Encourage sobriety treatment at the highest level to which the patient is willing to commit. #5. Continue CPAP on unit for sleep apnea #6 check thyroid panel Involuntary Hold Information 96 Hour Hold: 96 Hour Involuntary Admission: No Attestations NPU Medical Necessity Statement*: Inpatient hospitalization is medically necessary and the clinically appropriate intervention at this time we will initiate and or adjust medications at this time. The patient's likely length of stay is 1-3 days. Coding Level of Care Code Acute Code for Chg Fwd Diagnoses Major depressive disorder, severe F32.2 Hypothyroidism E03.9
[2022-12-20 14:00] VITALS: BP 112/66; PULSE 91; RESP 18; TEMP 36.5; O2SAT 95
[2022-12-20 20:07] VITALS: BP 105/57; PULSE 80; RESP 20; TEMP 36.3; O2SAT 96
[2022-12-20] MEDS: hyDROXYzine 25 mg Capsule 50 MG PO (20:22)
[2022-12-20] MEDS: trazodone 150 mg Tablet 300 MG PO (21:44)
[2022-12-20] MEDS: trazodone 50 mg Tablet PO (22:00)
[2022-12-21 06:00] VITALS: BP 133/82; PULSE 93; RESP 18; TEMP 36.3; O2SAT 96
[2022-12-21] MEDS: levothyroxine 50 mcg Tablet PO (06:21)
[2022-12-21] MEDS: duloxetine 60 mg Capsule PO ×2 (08:30→18:29)
[2022-12-21] MEDS: ARIPiprazole 10 mg Tablet PO (08:30)
[2022-12-21] MEDS: topiramate 25 mg Tablet PO ×2 (08:30→18:29)
[2022-12-21] MEDS: methocarbamol 750 mg Tablet PO ×3 (08:30→20:18)
[2022-12-21] MEDS: pantoprazole DR 40 mg Tablet PO (08:30)
[2022-12-21] MEDS: lisinopril 20 mg Tablet PO (08:30)
[2022-12-21 09:57] VITALS: BP 133/82; PULSE 93; RESP 18; TEMP 36.3; O2SAT 96
[2022-12-21] MEDS: naproxen 500 mg Tablet PO ×2 (11:01→20:22)
[2022-12-21] MEDS: nicotine 2 mg Gum BUCCAL (12:01)
[2022-12-21 14:00] VITALS: BP 116/69; PULSE 86; RESP 18; TEMP 36.4; O2SAT 95
[2022-12-21] MEDS: bacitracin ointment 28 gm TOPICAL (15:01)
--- NOTE | 2022-12-21 16:39 | W.PM.NPUPNS ---
Subjective NPU Subjective: Patient resented today reporting that he is excepting of the plan for discharge and is dealing with the fact that the original plan for discharge today was foiled by transportation issues. We were able to get his medications from the pharmacy and make arrangements for transportation for first thing in the morning. He denies any new or pressing issues. Mental Status Exam MSE Comments: This is a morbidly obese white male who appeared his stated age with adequate grooming and eye contact. No abnormal movements as he was sitting in a chair in the dayroom. Cooperative with exam in no acute distress. His speech was normal in regards to rate rhythm and prosody. His mood was described as better/feeling ready to go. His affect was congruent. His thought process was linear logical and goal-directed. He denied suicidal or homicidal ideation, there were no delusions reported or noted, he denied any auditory or visual hallucinations. Attention and concentration appeared intact and memory appeared reliable but none were formally tested. He alert and oriented x3. His impulse control appeared improving. His insight and judgment were both improving. Vitals/I&O/Wt Last Vital Signs Temp 97.4 F L 12/21/22 09:57 Pulse 93 12/21/22 09:57 Resp 18 12/21/22 09:57 BP 133/82 12/21/22 09:57 Pulse Ox 96 12/21/22 09:57 O2 Del Method 12/18/22 20:05 Weight last 48 hrs Weight 182.344 kg Data NPU 12/15/22 08:29 12/15/22 08:29 A&P Assessment and plan (1) Major depressive disorder, severe: (2) Hypothyroidism: Plan Patient is a 57-year-old homeless white male with a history of major depressive disorder and polysubstance abuse admitted with suicidal ideation with multiple medical problems. #1. Restart current medications. Continue Abilify 10mg daily, continue cymbalta as prescribed. add Nuvigil for EDS. #2. Appreciative of help with med/surg regarding inguinal abcess. #3 engage patient in individual milieu and group therapy #4. Encourage sobriety treatment at the highest level to which the patient is willing to commit. #5. Continue CPAP on unit for sleep apnea #6 thyroid panel WNL Involuntary Hold Information 96 Hour Hold: 96 Hour Involuntary Admission: No Attestations NPU Medical Necessity Statement*: Inpatient hospitalization is medically necessary and the clinically appropriate intervention at this time we will initiate and or adjust medications at this time. The patient's likely length of stay is 1- 2 days. Plan for discharge in the morning. Coding Level of Care Code Acute Code for Chg Fwd Diagnoses Major depressive disorder, severe F32.2 Hypothyroidism E03.9
[2022-12-21 20:14] VITALS: BP 144/80; PULSE 90; RESP 20; TEMP 36.4; O2SAT 94
[2022-12-21] MEDS: hyDROXYzine 25 mg Capsule 50 MG PO (20:18)
[2022-12-21] MEDS: trazodone 150 mg Tablet 300 MG PO (22:06)
[2022-12-21] MEDS: trazodone 50 mg Tablet PO (22:06)
[2022-12-22 04:54] VITALS: BP 117/74; PULSE 85; RESP 20; TEMP 36.3; O2SAT 94
[2022-12-22] MEDS: levothyroxine 50 mcg Tablet PO (05:05)
[2022-12-22] MEDS: nicotine 4 mg lozenge MUCOUS MEM (05:05)
--- NOTE | 2022-12-22 06:02 | PC.NURSE ---
Patient only slept 30 minutes this shift. Reported he could not sleep. Did take scheduled trazodone plus a 50mg trazodone. Other prn's were offered but patient declined. Sitting in dayroom watching TV.
[2022-12-22] MEDS: naproxen 500 mg Tablet PO (07:40)
[2022-12-22] MEDS: lisinopril 20 mg Tablet PO (08:47)
[2022-12-22] MEDS: ARIPiprazole 10 mg Tablet PO (08:47)
[2022-12-22] MEDS: duloxetine 60 mg Capsule PO (08:47)
[2022-12-22] MEDS: pantoprazole DR 40 mg Tablet PO (08:47)
[2022-12-22] MEDS: topiramate 25 mg Tablet PO (08:48)
[2022-12-22] MEDS: methocarbamol 750 mg Tablet PO (08:48)
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
== END 2022-12-22 09:50 | disposition home or self-care (01) | DRG 885 ==
LOC: ER 11:13 → NP 12:42
PROVIDERS: Internal Medicine; Admitting Provider Psychiatry & Neurology Psychiatry; Emergency Provider General Practice; PCP Family Medicine; Visit Provider Psychiatry & Neurology Psychiatry
DX: F33.2 Major depressive disorder, recurrent severe without psychotic features (principal); R45.851 Suicidal ideations; Z68.44 Body mass index [BMI] 60.0-69.9, adult; Z59.00 Homelessness unspecified; G47.33 Obstructive sleep apnea (adult) (pediatric); Z99.89 Dependence on other enabling machines and devices; E03.9 Hypothyroidism, unspecified; I10 Essential (primary) hypertension; R73.03 Prediabetes; E66.01 Morbid (severe) obesity due to excess calories; F10.11 Alcohol abuse, in remission; F19.11 Other psychoactive substance abuse, in remission; F17.210 Nicotine dependence, cigarettes, uncomplicated; G89.29 Other chronic pain; F41.9 Anxiety disorder, unspecified
CPT/HCPCS: 36415; 80048; 80306; 80307; 83036; 83880; 84439; 84443; 85025; 97150; 97165; 99238; 99285

== ENCOUNTER → 2025-01-03 11:35 | Outpatient (BNVA) | payer OTHER, MEDICAID, SELFPAY ==
[2022-12-14 14:14] VITALS: BP 123/76; BMI 59.1
== END ==
PROVIDERS: PCP Family Medicine; Visit Provider Family Medicine
DX: I10 Essential (primary) hypertension (principal); R73.03 Prediabetes; E03.9 Hypothyroidism, unspecified
CPT/HCPCS: 80053; 80061; 83036; 84439; 84443; 85025

== ENCOUNTER 2025-01-05 10:47 | Emergency (ER) | payer OTHER, MEDICAID, SELFPAY ==
[2022-12-14 14:14] VITALS: BP 123/76; BMI 59.1
[2025-01-05 10:50] VITALS: BP 138/66; PULSE 123; RESP 20; TEMP 36.6; O2SAT 93; BMI 67.7
--- NOTE | 2025-01-05 10:50 | XR_ITS ---
WS: [id number] Portable AP upright chest, 01/05/2025 Clinical Data: cp Comparison: None. Findings: No nodules, masses or effusions are seen. The heart is normal. The pulmonary vascularity is not increased. No pneumonia or pneumothorax is seen. There is a recording device overlying the right mid chest. There are monitor leads on the chest wall. XR/XR chest 1V portable [id number] Impression: Negative chest.
--- NOTE | 2025-01-05 10:50 | ECG_ITS ---
[facility] Date: 2025-01-05 Pat Name: Jesus Barron Department: Room: Gender: Male Special Services Director: : 1965 Requested By: Teri Bourne Order Number: [id number] Matt MD: Mark Rossi M.D. Measurements Intervals [place] Rate: 99 P: 0 HI: 0 QRS: -37 QRSD: 181 T: 118 QT: 432 QTc: 557 Interpretive Statements SUPRAVENTRICULAR RYHTHM LEFT AXIS DEVIATION [QRS AXIS < -30] LEFT BUNDLE BRANCH BLOCK [120+ ms QRS DURATION, 80+ ms Q/S IN V1/V2, 85+ ms R IN I/aVL/V5/V6] No previous ECG available for comparison Electronically Signed On 01-05-2025 19:02:23 CDT by Mark Rossi M.D. [id number]
--- NOTE | 2025-01-05 10:55 | ED_ITS ---
HPI - Chest Pain 2 General: Chief Complaint: Chest Pain Stated Complaint: chest pain Time Seen by Provider: 01/05/25 10:50 Source: patient and EMS Mode of arrival: EMS Limitations: no limitations History of Present Illness: 59-year-old male states he woke up this morning with crushing chest pain. Patient called EMS when they arrived he was found to be in V. tach he had stable blood pressures initially gave him lidocaine did not convert him a sedated with ketamine and cardioverted him electrically patient now has a left bundle branch block do not have any previous EKGs on him he states his chest pain is much improved he rates it a 2 out of 10 currently no history of any coronary disease he does have a history of obesity tobacco use diabetes and hypertension. Associated symptoms: Deny abdominal pain, dyspnea, fever(s), nausea or vomiting Related Data Home Medications ?Medication ?Instructions ?Recorded ?Confirmed acetaminophen 500 mg tablet 1,000 mg PO Q6H PRN Pain 1 11/02/21 01/05/25 (Tylenol Extra Strength) metformin 500 mg tablet,extended 500 mg PO BID 5 01/05/25 release 24hr (osmotic) Previous Rx's ?Medication ?Instructions ?Recorded doxepin 100 mg capsule 100 mg PO .QHS #90 caps 12/23 12/19 duloxetine 20 mg capsule,delayed 20 mg PO DAILY #90 ca ps 01/03/25 release (Cymbalta) hydroxyzine pamoate 25 mg capsule 50 mg (2 x 25 mg) PO TID PRN 01/03/25 Anxiety #180 caps levothyroxine 100 mcg capsule 100 mcg PO DAILY #90 cap s 01/03/25 lisinopril 20 1 tab PO QAM #90 tabs mg-hydrochlorothiazide 12.5 mg tablet methocarbamol 750 mg tablet 750 mg PO TID 30 days #90 tabs 01/03/25 naproxen 500 mg tablet 500 mg PO BID PRN pain #180 tabs 01/03/25 quetiapine 400 mg tablet (Seroquel) 400 mg PO .QHS #90 tabs 01/03/25 Allergies Allergy/AdvReac Type Severity Reaction Status Date / Time No Known Allergies Allergy Verified 01/05/25 11:00 Review of Systems 2 Const: Denies: fever(s), chills, body aches or change in appetite ENMT: Denies: throat pain or dental pain Card: Reports: chest pain Resp: Denies: dyspnea GI: Denies: abdominal pain, nausea, vomiting or diarrhea Musc: Denies: neck pain or back pain Skin/Breast: Denies: rash Neuro: Denies: headache(s) PFSH ED 2 PFSH: Medical History Chronic migraine BMI 60.0-69.9, adult Anxiety Pre-diabetes Tobacco use disorder Borderline diabetes Obstructive sleep apnea Depression Renal calculus or stone Migraine aura, persistent Essential (primary) hypertension Chronic back pain Morbid obesity BMI 68.7% Does mobilize using cane Dependence on CPAP ventilation Surgical History History of uvulopalatopharyngoplasty History of tonsillectomy and adenoidectomy History of nasal surgery Septum deviation Family History Grandfather Hypertension Mother Cancer Hodgkin's Denies family history of Diabetes Dementia Chronic kidney disease (CKD) Lung disease Stroke Social History Smoking and tobacco/nicotine status: current every day tobacco/nicotine user cigarettes [ Other cigarette details: 2 cigs/day] Quit status (tobacco/nicotine): not considering quitting Second hand smoke exposure: Yes Alcohol intake: never Substance/Drug Use: never Adopted: No Caregiver/support person: No Lives independently: No (at [facility] nursing [facility]) Household members: other Details: currently at [facility] Housing: Other Details: [facility] Marital status: / Number of children: 1 Number of grandchildren: 2 Highest education level completed: Associate Degree: Academic Program Education level details: and part way through Bachelor's degree service: No Current occupational status: unemployed and disabled 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 Current occupational exposures/hazards: No Pets and animals: No Leisure activites: reading and other Leisure activities details: watch movies, play on computer Do you think of yourself as: Straight/Heterosexual Current gender identity: Male Irene/Caodaism: None Special irene needs: No Agree to transfusion: No Physical Exam 2 Const: COMMON NORMALS: patient oriented x3 GENERAL APPEARANCE: in distress HENMT: COMMON NORMALS: normocephalic and atraumatic HEAD & SCALP: n ormocephalic and atraumatic Eye: COMMON NORMALS: conjunctivae normal CONJUNCTIVA: Yes conjunctivae normal Neck/C-Spine: COMMON NORMALS: full ROM and supple Chest: COMMONS NORMALS: normal inspection of the chest Resp: COMMON NORMALS: normal respiratory effort Cardio: COMMON NORMALS: regular rate, regular rhythm and No murmurs present (Cardio) RATE: regular rate RHYTHM: regular rhythm Extremity: COMMON NORMALS: normal to inspection and full ROM Neuro: COMMON NORMALS: patient oriented x3, moves all extremities and no focal motor deficits Psych: COMMON NORMALS: mental status grossly normal, Normal thought process present and cooperative THOUGHT PROCESS: Normal thought process present Skin: COMMON NORMALS: no rashes or lesions noted and no wounds GENERAL SKIN EXAM: no rashes or lesions noted Course 2 Vital Signs: Vital signs: Vital Signs Temperature 97.8 F 01/05/25 10:50 Pulse Rate 90 01/05/25 11:32 Respiratory Rate 21 H 01/05/25 11:32 Blood Pressure 114/71 01/05/25 11:32 Pulse Oximetry 92 01/05/25 11:32 Oxygen Delivery Me thod Room Air 01/05/25 10:50 MDM - Chest Pain Medical Decision Making Patient presents here after having V. tach patient was given lidocaine then he was cardioverted by EMS he states his pain is improved since being cardioverted but still had pain that is 2 out of 10 here. He does have a left bundle branch block on his EKG here I do not have an old EKG to compare to patient was seen by the creative perfumer here Dr. Martel who agrees the patient needs an emergent cath as he has ongoing pain and a left bundle branch block and V. tach. Unfortunately patient weighs 470 pounds and our Special Class [employer]der table cannot handle his weight as he is over the weight limit. I did start him on heparin and Plavix heparin drip Nitropaste and amiodarone. I have spoke to Ghada who does have the capability with a Special Class [employer]der table that can handle his weight and have excepting to the ER by Dr. Maher will transfer there by ground as patient is too large to fly. Medical Records I reviewed the patient's medical records. Lab Data I reviewed the patient's lab results. 01/05/25 11:00 01/05/25 11:00 Radiology Impressions Chest X-Ray 01/05/25 10:50 Impression: Negative chest. Laboratory Results WBC 6.32 10^3/uL (3.29-11.43) 01/05/25 11:00 RBC 5.27 10^6/uL (3.85-5.65) 01/05/25 11:00 Hgb 14.20 g/dL (11.27-16.99) 01/05/25 11:00 Hct 45.7 % (37-53) 01/05/25 11:00 MCV 86.7 fl (82-101) 01/05/25 11:00 MCH 26.9 pg (27-33) L 01/05/25 11:00 MCHC 31.1 g/dL (30-55) 01/05/25 11:00 RDW 15.4 % (12.1-15.1) H 01/05/25 11:00 Plt Count 225 10^3/cmm (157-399) 01/05/25 11:00 MPV 9.5 fL (7.4-10.4) 01/05/25 11:00 Neut % (Auto) 69.2 % 01/05/25 11:00 Lymph % (Auto) 20.4 % 01/05/25 11:00 [place] % (Auto) 6.3 % 01/05/25 11:00 Eos % (Auto) 2.7 % 01/05/25 11:00 Baso % (Auto) 0.6 % 01/05/25 11:00 Neut # (Auto) 4.37 10^3/uL (1.8-7.7) 01/05/25 11:00 Lymph # (Auto) 1.3 10^3/uL (0.8-4.8) 01/05/25 11:00 [place] # (Auto) 0.4 10^3/uL (0.2-0.9) 01/05/25 11:00 Eos # (Auto) 0.2 10^3/uL (0.0-0.8) 01/05/25 11:00 Baso # (Auto) 0.0 10^3/uL (0.0-0.1) 01/05/25 11:00 Nucleated RBC % (auto) 0 % 01/05/25 11:00 Nucleated RBCs # 0.0 /100WBC 01/05/25 11:00 PT 13.60 SECONDS (12.1-14.9) 01/05/25 11:00 INR 0.97 (0.8-1.2) 01/05/25 11:00 Sodium 133 mmol/L (136-145) L 01/05/25 11:00 Potassium 4.4 mmol/L (3.5-5.1) 01/05/25 11:00 Chloride 97 mmol/L (98-107) L 01/05/25 11:00 Carbon Dioxide 21 mmol/L (22-29) L 01/05/25 11:00 Anion Gap 19.4 (5-19) H 01/05/25 11:00 BUN 21 mg/dL (6-20) H 01/05/25 11:00 Creatinine 1.2 mg/dL (0.7-1.2) 01/05/25 11:00 GFR Calculation 62.4 mL/min (90-130) L 01/05/25 11:00 Glucose 243 mg/dL (65-115) H 01/05/25 11:00 Calculated Osmolality 287 mOsm/kg (285-295) 01/05/25 11:00 Calcium 8.8 mg/dL (8.5-10.5) 01/05/25 11:00 Total Bilirubin 0.3 mg/dL (0.15-1.2) 01/05/25 11:00 AST 40 U/L (0-40) 01/05/25 11:00 ALT 41 U/L (0-41) 01/05/25 11:00 Alkaline Phosphatase 71 U/L (40-130) 01/05/25 11:00 Troponin T Baseline 15 ng/L (0-15) 01/05/25 11:00 Total Protein 7.4 g/dL (6.6-8.7) 01/05/25 11:00 Albumin 3.4 g/dL (3.5-5.2) L 01/05/25 11:00 Globulin 4.0 g/dL (1.3-4.6) 01/05/25 11:00 Lipase 52 U/L (13-60) 01/05/25 11:00 All radiology interpretation(s) finalized by discharge EKG Data EKG 1: I personally reviewed and interpreted this EKG as follows: EKG interpretation date: 01/05/25 EKG interpretation time: 10:50 Interpretation: hr [address] elevation lbbb qrs 181 qtc 489 Critical Care Time 2 Critical Care Time: Critical Care Time: Yes Total Critical Care Time: 45 Attestation: The high probability of a clinically significant, sudden or life threatening deterioration of the patient's cv system(s) required my full and direct attention, intervention and personal management. The critical care time is as shown. This time is in addition to time spent performing any reported procedures but includes the following: [x] Data and vital sign review and interpretation [x] Patient assessment, examination and intervention [x] Documentation [x] Medication orders and management Discharge Plan Discharge Patient Disposition: Xfer Short-Term Hosp Clinical Impression: V tach Condition: Stable Prescriptions: No Action quetiapine [Seroquel] 400 mg tablet 400 mg PO .QHS Qty: 90 1RF doxepin 100 mg capsule 100 mg PO .QHS Qty: 90 1RF duloxetine [Cymbalta] 20 mg capsule,delayed release(DR/EC) 20 mg PO DAILY Qty: 90 1RF hydroxyzine pamoate 25 mg capsule 50 mg PO TID PRN (Reason: Anxiety) Qty: 180 1RF lisinopril-hydrochlorothiazide 20-12.5 mg tablet 1 tab PO QAM Qty: 90 1RF methocarbamol 750 mg tablet 750 mg PO TID 30 Days Qty: 90 1RF naproxen 500 mg tablet 500 mg PO BID PRN (Reason: pain) Qty: 180 1RF acetaminophen [Tylenol Extra Strength] 500 mg tablet 1,000 mg PO Q6H PRN (Reason: Pain) levothyroxine 100 mcg capsule 100 mcg PO DAILY Qty: 90 1RF metformin 500 mg Tablet Extended Release 24hr 500 mg PO BID Referrals: Reinaldo Conklin MD [Primary Care Provider] - Print Language: Honduran Coding Level of Care Code ED Optical Glass Sawyer for Chg Elza
--- NOTE | 2025-01-05 10:57 | PC.PHAR ---
called [facility] pharmacy for current med list, pharmacist went over meds with me along with fill dates. 3 new rx's are filled and ready for patient bean picker and those are hydroxyzing, levothyroxine, metformin all precribed by lia
[2025-01-05] MEDS: heparin 5,000 unit/mL INJ 1 mL 4000 UNIT IVP (11:05)
[2025-01-05] MEDS: clopidogrel 300 mg Tablet 600 MG PO (11:05)
[2025-01-05] MEDS: amiodarone 150 MG/100 ML PREMIX 400 MG IV (11:16)
[2025-01-05 11:17] LABS: Basophils % 0.6 %; Eosinophils # 0.2 10^3/uL (0.0-0.8); Eosinophils % 2.7 %; Hematocrit 45.7 % (37-53); Lymphocytes # 1.3 10^3/uL (0.8-4.8); Lymphocytes % 20.4 %; Mean Corpuscular HGB Conc 31.1 g/dL (30-55); Mean Corpuscular Hemoglobin 26.9 pg (27-33); Mean Corpuscular Volume 86.7 fl (82-101); Mean Platelet Volume 9.5 fL (7.4-10.4); Monocytes # 0.4 10^3/uL (0.2-0.9); Monocytes % 6.3 %; Neutrophils # 4.37 10^3/uL (1.8-7.7); Neutrophils % 69.2 %; Nucleated Red Blood Cells % 0 %; Platelet Count 225 10^3/cmm (157-399); Red Blood Count 5.27 10^6/uL (3.85-5.65); Red Cell Distribution Width 15.4 % (12.1-15.1); White Blood Count 6.32 10^3/uL (3.29-11.43)
[2025-01-05 11:23] LABS: INR 0.97 (0.8-1.2)
[2025-01-05] MEDS: heparin drip 25,000 UNIT/500 ML PREMIX 51.38 UNIT IV (11:28)
[2025-01-05 11:29] LABS: Troponin(5th) Baseline 15 ng/L (0-15)
[2025-01-05 11:30] LABS: Alanine Aminotransferase 41 U/L (0-41); Albumin Level 3.4 g/dL (3.5-5.2); Alkaline Phosphatase 71 U/L (40-130); Blood Urea Nitrogen 21 mg/dL (6-20); Calcium 8.8 mg/dL (8.5-10.5); Carbon Dioxide 21 mmol/L (22-29); Chloride 97 mmol/L (98-107); Creatinine Clr Calc Pharmacy 124.3448; Glomerular Filtration Rate 62.4 mL/min (90-130); Glucose 243 mg/dL (65-115); Lipase 52 U/L (13-60); Osmolality Calculated 287 mOsm/kg (285-295); Sodium 133 mmol/L (136-145); Total Bilirubin 0.3 mg/dL (0.15-1.2); Total Protein 7.4 g/dL (6.6-8.7)
[2025-01-05] MEDS: nitroglycerin 1 gm/inch oint Pkt 0.5 INCH TOPICAL (11:31)
[2025-01-05 11:32] VITALS: BP 114/71; PULSE 90; RESP 21; O2SAT 92
[2025-01-05 11:33] LABS: Anion Gap 19.4 (5-19); Aspartate Amino Transferase 40 U/L (0-40); Potassium 4.4 mmol/L (3.5-5.1)
--- NOTE | 2025-01-05 11:52 | PC.NURSE ---
report called to MISSY Edge at [facility]. report #: ; [facility] called by ER for life threat transfer.
[2025-01-05 12:12] VITALS: BP 114/76; PULSE 85; O2SAT 98
--- NOTE | 2025-01-05 16:14 | P.CONIM_ITS ---
<Statement entered by Gera Martel MD - 01/06/25 18:13> Patient was evaluated and cared for in conjunction with an advanced practice practitioner. I personally examined the patient and reviewed the chart and all pertinent data including imaging, telemetry, and laboratory results. I discussed the patient in detail with the advanced practice practitioner. Please see their note for complete H&P testing result and agreed upon plan of care for the patient. 59-year-old male past medical significant for morbid obesity weighing 476 pounds at the time of presentation brought in with chest pain, ventricular tachycardia status post cardioversion during transportation and the EMS currently report 2 out of 10 chest pain with new left bundle branch block possible as we do not have any prior EKG. Patient was loaded with Plavix aspirin statin and heparin however because his weight exceeds our Manager Functional table capacity which is 430 pound it is therefore suggested that the patient should be immediately transferred to PCI capable hospital with Manager Functional that can support up to 500 pound weight. We call [facility] in the [place]. Patient was accepted at the [facility] currently he is being transferred through air ambulance. GENERAL: Patient is alert, awake and oriented x3. HEART: Regular S1 and S2. No murmur, rub or gallop. LUNGS: Clear to auscultate bilaterally. CENTRAL NERVOUS SYSTEM: Grossly nonfocal. EXTREMITIES: Lower extremities with out edema bilaterally. Assessment and plan Acute coronary syndrome Left bundle branch block Ventricular tachycardia status post electrical cardioversion Suggest IV amiodarone Beta-jeff p.o. in the form of metoprolol 25 mg succinate Aspirin statin He was loaded with Plavix Continue heparin Initiate transfer to [facility] for urgent PCI. Providers/Reason For Consult 2 Consulting Physician/Specialty*: Dr. Martel Reason for Consult*: [facility], chest pain Requesting Physician: Dr. Bourne Primary Care Provider: Reinaldo Conklin MD History of Present Illness History of Present Illness Jesus Barron is a 59 year old male history of ENRIQUE, essential hypertension, obesity, diabetes, hypercholesterolemia. He called EMS due to crushing chest pain. When he arrived to the ER, he was found to be in V. Tach with stable blood pressures. He was given lidocaine and did not convert. He was then given ketamine and was cardioverted. He developed a left bundle branch block. He was chest pain free on exam. Review of Systems 2 Narrative: CONSTITUTIONAL: No fever chills weight loss or gain or night sweats. HEENT: Normocephalic, atraumatic. RESPIRATORY: No cough, sputum, hemoptysis or wheezing. CARDIOVASCULAR: No shortness of breath, chest pain, PND, orthopnea, lower extremity edema, presyncope or syncope. GI: no nausea vomiting diarrhea. 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 MUSCULOSKELETAL: No knee or joint pain or rashes. Medications/Allergies Home Medications ?Medication ?Instructions ?Recorded ?Confirmed ?Last Taken ?Type acetaminophen 500 mg tablet 1,000 mg PO Q6H PRN Pain 1 11/02/21 01/05/25 Unknown History (Tylenol Extra Strength) doxepin 100 mg capsule 100 mg PO .QHS #90 caps 12/2301/05/25 Unknown Rx duloxetine 20 mg capsule,delayed 20 mg PO DAILY #90 ca ps 01/03/25 01/05/25 Unknown Rx release (Cymbalta) hydroxyzine pamoate 25 mg capsule 50 mg (2 x 25 mg) PO TID PRN 01/03/25 01/05/25 Unknown Rx Anxiety #180 caps levothyroxine 100 mcg capsule 100 mcg PO DAILY #90 cap s 01/03/25 01/05/25 Unknown Rx lisinopril 20 1 tab PO QAM #90 tabs 01/05/25 Unknown Rx mg-hydrochlorothiazide 12.5 mg tablet methocarbamol 750 mg tablet 750 mg PO TID 30 days #90 tabs 01/03/25 01/05/25 Unknown Rx naproxen 500 mg tablet 500 mg PO BID PRN pain #180 tabs 01/03/25 01/05/25 Unknown Rx quetiapine 400 mg tablet (Seroquel) 400 mg PO .QHS #90 tabs 01/03/25 01/05/25 Unknown Rx metformin 500 mg tablet,extended 500 mg PO BID 5 01/05/25 Unknown History release 24hr (osmotic) Allergies Allergy/AdvReac Type Severity Reaction Status Date / Time No Known Allergies Allergy Verified 01/05/25 11:00 PFSH Acute 2 PFSH: Medical History Chronic migraine BMI 60.0-69.9, adult Anxiety Pre-diabetes Tobacco use disorder Borderline diabetes Obstructive sleep apnea Depression Renal calculus or stone Migraine aura, persistent Essential (primary) hypertension Chronic back pain Morbid obesity BMI 68.7% Does mobilize using cane Dependence on CPAP ventilation Surgical History History of uvulopalatopharyngoplasty History of tonsillectomy and adenoidectomy History of nasal surgery Septum deviation Family History Grandfather Hypertension Mother Cancer Hodgkin's Denies family history of Diabetes Dementia Chronic kidney disease (CKD) Lung disease Stroke Social History Smoking and tobacco/nicotine status: current every day tobacco/nicotine user cigarettes [ Other cigarette details: 2 cigs/day] Quit status (tobacco/nicotine): not considering quitting Second hand smoke exposure: Yes Alcohol intake: never Substance/Drug Use: never Adopted: No Caregiver/support person: No Lives independently: No (at homeless correction) Household members: other Details: currently at [employer] Housing: Other Details: [facility] Marital status: / Number of children: 1 Number of grandchildren: 2 Highest education level completed: Associate Degree: Academic Program Education level details: and part way through Bachelor's degree service: No Current occupational status: unemployed and disabled 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 Current occupational exposures/hazards: No Pets and animals: No Leisure activites: reading and other Leisure activities details: watch movies, play on computer Do you think of yourself as: Straight/Heterosexual Current gender identity: Male Irene/Caodaism: None Special irene needs: No Agree to transfusion: No Vitals/I&O/Wt Last Vital Signs Temp 97.8 F 01/05/25 10:50 Pulse 85 01/05/25 12:12 Resp 21 H 01/05/25 11:32 BP 114/76 01/05/25 12:12 Pulse Ox 98 01/05/25 12:12 O2 Del Method Room Air 01/05/25 10:50 01/05/25 01/05/25 01/05/25 06:59 14:59 22:59 Intake Total 100 / 100 Balance 100 / 100 Weight last 48 hrs Weight 472 lb Physical Exam 2 Narrative: GENERAL: Patient is alert, awake and oriented x3. HEART: Regular S1 and S2. No murmur, rub or gallop. LUNGS: Clear to auscultate bilaterally. CENTRAL NERVOUS SYSTEM: Grossly nonfocal. EXTREMITIES: Lower extremities with out edema bilaterally. Data 01/05/25 11:00 01/05/25 11:00 A&P Assessment and plan (1) Nicotine dependence, cigarettes, uncomplicated: (2) V tach: (3) Essential (primary) hypertension: (4) Tobacco use disorder: (5) Left bundle branch block: Plan Patient was stable on assessment. At this time, his weight exceeds the weight limit of our general laborer table. Due to this, we recommended patient be transferred, start amiodarone drip after bolus, start heparin drip, nitro drip. He was accepted and transferred to [facility]. PDMP PDMP Reviewed: Not Reviewed Coding Level of Care Code Acute Code for Chg Fwd Diagnoses Nicotine dependence, cigarettes, uncomplicated F17.210 V tach I47.20 Essential (primary) hypertension I10 Tobacco use disorder F17.200 Left bundle branch block I44.7
== END 2025-01-05 12:15 | disposition short-term general hospital (02) ==
PROVIDERS: Emergency Provider Emergency Medicine; PCP Family Medicine
DX: I47.20 Ventricular tachycardia, unspecified (principal); F17.210 Nicotine dependence, cigarettes, uncomplicated; I10 Essential (primary) hypertension
CPT/HCPCS: 71045; 80053; 83690; 84484; 85025; 85610; 93005; 96365; 96375; 99285; 99291; 99292; A4222; J0283; J1644; J9999

== ENCOUNTER → 2025-06-06 11:03 | Outpatient (BNVA) | payer MEDICAID, SELFPAY ==
[2022-12-14 14:14] VITALS: BP 123/76; BMI 59.1
== END ==
PROVIDERS: PCP Family Medicine; Visit Provider Family Medicine
DX: E11.9 Type 2 diabetes mellitus without complications (principal)
CPT/HCPCS: 80053; 80061; 83036; 85025

== ENCOUNTER → 2025-10-10 15:16 | Outpatient (BNVA) | payer MEDICAID, MEDICARE, SELFPAY ==
[2022-12-14 14:14] VITALS: BP 123/76; BMI 59.1
== END ==
PROVIDERS: PCP Family Medicine; Visit Provider Family Medicine
DX: E03.9 Hypothyroidism, unspecified (principal); E11.9 Type 2 diabetes mellitus without complications
CPT/HCPCS: 80053; 80061; 83036; 84439; 84443; 85025